=== PATIENT | male | born 1945 | race Caucasian/White ===

== ENCOUNTER 2018-10-17 18:50 | Inpatient (IN) | payer OTHER ==
[~2018-10-17] VITALS: Ht 175.3 cm; Wt 97.9 kg
[2018-10-17 18:53] VITALS: BP 100/64
[2018-10-17] MEDS ORDERED: PROPRANOLOL 1010 MG PO (19:05)
[2018-10-17] MEDS ORDERED: LIPITOR10 MG PO (19:06)
[2018-10-17 19:16] LABS: ABSOLUTE NEUTROPHILS 3.5 thou/uL (1.4-8.2); BASOPHILS 0.2 % (0.0-2.0); HEMATOCRIT 43.7 % (42.0-52.0); HEMOGLOBIN 14.9 gm/dL (14.0-18.0); LYMPHOCYTES 46.5 % (24.0-44.0); MCH 31.7 pg (26.0-34.0); MCHC 34.2 g/dL (28.0-37.0); MCV 92.6 fL (80.0-100.0); MONOCYTES 9.3 % (1.0-8.0); PLATELET COUNT 315 thou/uL (150-400); RBC 4.71 mil/uL (4.50-6.00); RDW 13.6 % (10.5-14.5); WBC 8.4 thou/uL (4.0-11.0)
[2018-10-17 19:20] LABS: CALCIUM 9.1 mg/dL (8.5-10.1); CREATININE 1.1 mg/dL (0.7-1.3); POTASSIUM 3.7 mmol/L (3.5-5.1)
[2018-10-17 19:26] LABS: CHOLESTEROL 154 mg/dL (<200); HDL CHOLESTEROL 31 mg/dL (>40); LDL CHOLESTEROL 104 mg/dL (<100); TRIGLYCERIDE 99 mg/dL (<150); VLDL 20 mg/dL (<40)
[2018-10-17 19:28] LABS: SERUM ASSESSMENT Clear
[2018-10-17 19:29] LABS: TROPONIN-I 0.11 ng/mL (<0.06)
[2018-10-17 19:37] VITALS: BP 151/58
[2018-10-17 21:30] VITALS: BP 163/93
[2018-10-17 21:34] VITALS: BP 129/90
[2018-10-17 23:15] VITALS: BP 156/105
[2018-10-18 01:08] LABS: HEMATOCRIT 43.9 % (42.0-52.0); MCH 31.7 pg (26.0-34.0); MCHC 34.1 g/dL (28.0-37.0); MCV 92.8 fL (80.0-100.0); RBC 4.73 mil/uL (4.50-6.00); RDW 13.7 % (10.5-14.5); WBC 9.6 thou/uL (4.0-11.0)
[2018-10-18 01:26] LABS: ANION GAP 11 mmol/L (7-16); BUN 13 mg/dL (7-18); CALCIUM 8.9 mg/dL (8.5-10.1); CHLORIDE 105 mmol/L (98-107); CO2 24 mmol/L (21-32); CREATININE 0.8 mg/dL (0.7-1.3); GLUCOSE 121 mg/dL (74-106); POTASSIUM 4.2 mmol/L (3.5-5.1); SODIUM 140 mmol/L (136-145)
[2018-10-18 01:32] LABS: TROPONIN-I > 40.00 ng/mL (<0.06)
[2018-10-18 04:53] VITALS: BP 101/65
--- NOTE | 2018-10-18 05:37 | NUR ---
PT WAS AN ADMIT FROM ER WHO WENT STRAIGHT TO POWDER NIPPER FOR A STEMI. A STENT WAS PLACED THROUGH THR RIGHT GROIN. PT ARRIVED ON THE FLOOR AT 2100 WITH NO SIGN OF DISRTRESS NOTED. RIGHT GROIN WAS CLEAN INTACT AND RICHARDS. NO SIGN OF DISTRESS NOTED IN PT. DR LIZ PERFORMED PROCEDURE, ADMISSION ASSESSMENT AND DEUCATION COMPLETED, APPROPRIATE VITALS DOCUMENTED. AT 2315 PT' BLOOD PRESSURE BECAME ELEVATED (156/106), RIGHT GROING SIGHT ASSESSED AND IT WAS NOTICED AT BLEEDING HAD OCCURED, BRIGHT RED BLOOD HAS SATURATED THE DRESSNG. ANOTHER RN WAS NOTIFIED, PRESSURE WAS APPLIED TO GROIN SIGHT FOR TWENTY MINUTES. PT HAD STATED THAT HE HAD SNEEZED PRIOR TO BLEEDING. PRESSURE CONTINUED TO BE APPLIED, LOPRESSOR ORDERED BY PHYSICIAN WAS ADMINISTERED TO PT. BLOOD PRESSURE TRENDED DOWN. PT IS STABLE. PT DENIES ANY PAIN AT RIGHT GROING SITE, DRESSING REINFORCED. PULSES PRESENT, CP REFILL < 3 SECS, VITAL SIGNS STABLE, HEART RATE STABLE. NO SIGN OF FURTHER DISTRESS NOTED AT THIS TIME.
[2018-10-18 07:16] VITALS: BP 113/68
--- NOTE | 2018-10-18 10:28 | 2DMMODE ---
[facility] [employer] [email or web address] [address] 2 D/M-MODE ECHOCARDIOGRAM Name: SHAHANA FLOYD Room #: 202-P [facility] IN ..#: [id number] Admission: 10/17/18 Attend Phys: Valente Regalado, Discharge: Date of : 49 Date of Service: 10/18/18 1027 Report #: [id number] THIS REPORT FOR: //name// APPROVED REPORT Study performed: 10/18/2018 08:50:18 EXAM: Comprehensive 2D, Doppler, and color-flow Echocardiogram Patient Location: Bedside Room #: 202 Status: routine BSA: 2.13 HR: 66 bpm BP: 113/68 mmHg Other Information Study Quality: Fair Indications COPD CAD Chest Pain Hypertension/HDD STEMI 2D Dimensions IVC: 24.00 mm Volumes Left Atrial Volume (Systole) Single Plane 4CH: 39.13 mL Single Plane 2CH: 39.03 mL LA ESV Index: 21.00 mL/m2 Aortic Valve AoV Peak Miki.: 1.36 m/s AO Peak Gr.: 7.36 mmHg LVOT Max P.38 mmHg LVOT Max V: 0.92 m/s Pulmonary Valve PV Peak Miki.: 1.20 m/s PV Peak Gr.: 5.74 mmHg Tricuspid Valve TR Peak Miki.: 2.24 m/s TR Peak Gr.: 20.01 mmHg PA Pressure: 30.00 mmHg [facility] [address] [place] [address] 2 D/M-MODE ECHOCARDIOGRAM Name: SHAHANA FLOYD Room #: 202-P ADM IN M.R.#: [id number] Admission: 10/17/18 Attend Phys: Valente Regalado, Discharge: Date of : 49 Date of Service: 10/18/18 1027 Report #: [id number] Left Ventricle The left ventricle is normal size. There is hypokinesis in the inferior wall. There is hypokinesis in the posterior wall. There is normal left ventricular wall thickness. Left ventricular systolic function is borderline. LVEF is 50%. This study is not technically sufficient to allow evaluation of the LV diastolic function. Right Ventricle The right ventricle is normal size. The right ventricular systolic function is normal. Atria The left atrium size is normal. Right atrium is at the upper limits of normal. Aortic Valve The aortic valve is normal in structure. The Aortic valve is sclerotic. Trace to mild aortic regurgitation. There is no aortic valvular stenosis. Mitral Valve The mitral valve is normal in structure. Trace mitral regurgitation. No evidence of mitral valve stenosis. Tricuspid Valve The tricuspid valve is normal in structure. There is trace tricuspid regurgitation. Estimated PAP 30 mmHg. There is mild pulmonary hypertension. Pulmonic Valve The pulmonary valve is normal in structure. There is no pulmonic valvular regurgitation. Great Vessels The aortic root is normal in size. IVC is dilated and collapses <50% with inspiration. Pericardium There is no pericardial effusion. <Conclusion> The left ventricle is normal size. LVEF is 50%. There is hypokinesis in the inferior wall. There is hypokinesis in the posterior wall. [facility] [address] [place] [address] 2 D/M-MODE ECHOCARDIOGRAM Name: SHAHANA FLOYD Sabina Room #: 202-P [facility] IN M.R.#: [id number] Admission: 10/17/18 Attend Phys: Valente Regalado, Discharge: Date of : 49 Date of Service: 10/18/18 1027 Report #: [id number] The aortic valve is normal in structure. The Aortic valve is sclerotic. Trace to mild aortic regurgitation. The mitral valve is normal in structure. Trace mitral regurgitation. The tricuspid valve is normal in structure. There is trace tricuspid regurgitation. Estimated PAP 30 mmHg. There is mild pulmonary hypertension. There is no pericardial effusion. <ELECTRONICALLY SIGNED> By: Luis Gordillo MD 10/18/187 26 26 Luis Gordillo MD /INF
[2018-10-18 11:31] VITALS: BP 113/74
[2018-10-18 15:06] VITALS: BP 113/65
--- NOTE | 2018-10-18 16:55 | NUR ---
ASSESSMENT CHARTED - MEDS PER DEC - NO CO'S OF PAIN OR NAUSEA. SANJANA DIET AND FLUIDS. UP AD VI IN ROOM. IN TO VISIT TODAY - SEEN BY CARDIAC REHAB THIS AFTERNOON. ECHO COMPLETED ORDERED. NO CO'S AT THE PRESENT TIME.
[2018-10-18 20:33] VITALS: BP 103/52
[2018-10-19 04:15] LABS: HEMATOCRIT 40.3 % (42.0-52.0); HEMOGLOBIN 13.9 gm/dL (14.0-18.0); MCH 31.6 pg (26.0-34.0); MCHC 34.4 g/dL (28.0-37.0); MCV 91.8 fL (80.0-100.0); RBC 4.39 mil/uL (4.50-6.00); RDW 13.9 % (10.5-14.5); WBC 8.9 thou/uL (4.0-11.0)
[2018-10-19 04:19] LABS: CALCIUM 8.4 mg/dL (8.5-10.1); CREATININE 0.9 mg/dL (0.7-1.3); POTASSIUM 3.3 mmol/L (3.5-5.1)
--- NOTE | 2018-10-19 04:23 | NUR ---
PT POST CATH. GROIN SITE C/D/I. NO C/O PAIN. DENIES RESP. DISTRESS AND CHEST PAIN. SLEPT MOST OF HE NIGHT. SR OF MOTOR POLARIZER WITH A 2 EPISODES OF VTACH, ASYMPTOMATIC. PT TO DC THIS AM. WILL CONTINUE TO MONITOR.
[2018-10-19 04:30] VITALS: BP 105/69
[2018-10-19 08:00] VITALS: BP 109/63
[2018-10-19] MEDS ORDERED: METOPROLOL SUCC25 M1 PO ×2 (08:00→08:05)
[2018-10-19] MEDS ORDERED: ATORVASTATIN CA40 MG PO (08:00)
[2018-10-19] MEDS ORDERED: ASPIRIN325 PO (08:00)
[2018-10-19] MEDS ORDERED: EFFIENT10 MG PO (08:00)
--- NOTE | 2018-10-19 08:42 | CATHLAB ---
[facility] [address] [place] [address] INVASIVE PROCEDURE REPORT Name: SHAHANA FLOYD Sabina Room #: 202-P [facility] IN ..#: [id number] Admission: 10/17/18 Attend Phys: Valente Regalado, Discharge: Date of : 49 Date of Service: 10/19/18 0842 Report #: [id number] THIS REPORT FOR: //name// APPROVED REPORT Study performed: 10/17/2018 19:31:30 Procedure Narrative The Right Groin^ was infiltrated with 1% Lidocaine subcutaneous anesthesia. A PINNACLE 6FR Sheath #[id number] sheath was inserted into the RFA^. Coronary angiography was performed using coronary diagnostic catheters. The right coronary system was accessed and visualized with a jr4 catheter. The left coronary system was accessed and visualized with a jl4 catheter. An aortogram of the abdominal aorta was performed. The patient tolerated the procedure well and there were no complications associated with the procedure. Intraoperative Conscious Sedation Sedation start time: 1951 Case end Time: 2051 Fentanyl 50 mcg Versed 1 mg Fluoro Time: 14.30 minutes Dose: DAP 46295.02 cGycm2 2140 mGy Contrast Type and Amount: Visipaque 210 ml Hemodynamics The aortic pressure is 149/92 mmHg with a mean of 117 mmHg. PCI Technique Lesion Percutaneous coronary intervention was performed on the mid right coronary artery. A BRITE TIP 6FR X 23CM Sheath #[id number] Guide Catheter was used to engage the ostium. A Luge Wire (J) .014 X 182CM #[id number] Interventional Guidewire was used to cross the lesion. BALLOON DILATION A Balloon catheter Sprinter OTW 2.75 x 15 #[id number] was inserted and inflated up to 10.00atm for 10seconds. Additional Inflation: 14.00atm for 18seconds. STENT DEPLOYMENT A stent RESOLUTE ELIZABETH OTW 3.5 X 26 #[id number] was inserted and inflated up to 18.00atm for 32seconds. Additional Inflation: 20.00atm for 22seconds. [facility] [address] [place] [address] INVASIVE PROCEDURE REPORT Name: FLOYDSHAHANA OSULLIVAN Sabina Room #: 202-P [facility] IN M.R.#: [id number] Admission: 10/17/18 Attend Phys: Valente Regalado, Discharge: Date of : 49 Date of Service: 10/19/18 0842 Report #: [id number] PCI Technique Lesion 2 [place]ISTA 6FR JR 4 #[id number] Guide Catheter was used to engage the ostium. Balloon Dilation A Balloon catheter Sprinter OTW 2.5 x 12 #[id number] was inserted and inflated up to 14atm for 30seconds. Additional Inflation: 16atm for 39seconds. Conclusion #1 assessment emergent PTCA stent of an acute infarct vessel a large dominant mid RCA occlusion a splint of a 3.5 x 26 resolute [place]th stent to 3.6 in size 0% residual VICKI grade 3 flow #2 successful PTCA of the ostial PDA distal to the stent placement in the dominant right which had a high-grade lesion to less than 30% with balloon angioplasty. #3 left main some mild ostial narrowing of 20-30% giving rise to LAD and circumflex #4 LAD is moderately calcified the proximal segment has an 80% focal lesion inside of a longer area of moderate disease well preserved distal to thirds of this vessel. Point sees possible intervention later date) #5 circumflex OM is small nondominant has an eccentric 60-70% proximal lesion but minimal distribution. #6 supravalvular aortogram due to severe tortuosity of the entire aorta had trivial aortic insufficiency and mild aortic root dilatation. Recommendations and plan. Patient he would have medically stable pain-free. Transfer to CCU to follow stent protocol. Dual antiplatelet therapy at least one year. Will obtain aortoiliac to evaluate the abdominal aorta due to severe tortuosity. I will be at the outpatient visit. And will set up for LAD stent at that setting. No strong indication to proceed with LAD intervention at this time. <ELECTRONICALLY SIGNED> By: Valente Regalado MD, FACC 10/19/18841 1 1 Valente Regalado MD, FACC /INF
[2018-10-19 09:09] VITALS: BP 109/63
--- NOTE | 2018-10-19 13:02 | NUR ---
assessment as charted - meds as per dec - toprol dose increased and given as ordered. pt up ad sharlene in room. faye diet and fluids with no co's of nausea - no co's of pain. pt discharged this am - in struction re home meds/ care and follow up given to patient and spouse - stated understanding of instruction given. pt left unit via wheel chair - home via pvt vehicle a accompanied by - no co's at time of d/c.
--- NOTE | 2018-10-19 15:05 | EKG ---
[address] [address] ELECTROCARDIOGRAM REPORT Name: SHAHANA FLOYD Sabina Room #: 202-P [facility] IN M.R.#: [id number] Admission: 10/17/18 Attend Phys: Valente Regalado MD, Discharge: 10/19/18 Date of : 49 Report #: [id number] THIS REPORT FOR: //name// [facility] ED Test Date: 2018-10-17 Test Time: 18:52:55 Pat Name: SHAHANA FLOYD Department: Room: 202 Gender: M Surgical Lead: MARIA R : 1945 Requested By: Beatriz Beal Order Number: [id number] MD: Jasen Corral Measurements Intervals [place] Rate: 52 P: 0 [place]: 208 QRS: 53 QRSD: 108 T: 101 QT: 429 QTc: 399 Interpretive Statements Wandering atrial pacemaker Inferoposterior infarct, acute (LCx) ST depression V1-V3, suggest recording posterior leads No previous ECG available for comparison Electronically Signed On 10-19-2018 15:05:01 SPORTS MARKETING SPECIALIST by Jasen Corral [email or web address] <ELECTRONICALLY SIGNED> By: Jasen Corral MD 10/19/18 1505 51 51 Jasen Corral MD /EPI
--- NOTE | 2018-10-19 15:07 | EKG ---
[address] [address] ELECTROCARDIOGRAM REPORT Name: EVERETTSHAHANA Muhammad Room #: 202-[facility] IN M.R.#: [id number] Admission: 10/17/18 Attend Phys: Valente Regalado MD, Discharge: 10/19/18 Date of : 49 Report #: [id number] THIS REPORT FOR: //name// [facility] Test Date: 2018-10-17 Test Time: 22:03:51 Pat Name: SHAHANA FLOYD Department: Room: 202 Gender: M Medication Nurse: Karen MORELOS : 1945 Requested By: Valente Regalado Order Number: [id number] MD: Jasen Corral Measurements Intervals [place] Rate: 85 P: -68 [place]: 272 QRS: -11 QRSD: 110 T: 97 QT: 380 QTc: 452 Interpretive Statements Sinus or ectopic atrial rhythm Prolonged [place] interval Inferior infarct, acute (RCA), resolving No previous ECG available for comparison Electronically Signed On 10-19-2018 15:06:58 BUSINESS OFFICE MANAGER by Jasen Corral [email or web address] <ELECTRONICALLY SIGNED> By: Jasen Corral MD 10/19/18 1506 02 02 Jasen Corral MD /EPI
--- NOTE | 2018-10-19 15:09 | EKG ---
[address] [address] ELECTROCARDIOGRAM REPORT Name: FLOYD,SHAHANA Muhammad Room #: 202-[facility] IN M.R.#: [id number] Admission: 10/17/18 Attend Phys: Valente Regalado MD, Discharge: 10/19/18 Date of : 49 Report #: [id number] THIS REPORT FOR: //name// [facility] Test Date: 2018-10-18 Test Time: 06:49:17 Pat Name: SHAHANA FLOYD Department: Room: 202 P Gender: M Evidence Technician: GR : 1945 Requested By: Valente Regalado Order Number: [id number] MD: Jasen Corral Measurements Intervals [place] Rate: 70 P: -82 [place]: 211 QRS: -34 QRSD: 127 T: -52 QT: 435 QTc: 470 Interpretive Statements Sinus or ectopic atrial rhythm Atrial premature complex Nonspecific intraventricular conduction delay Inferior infarct, age indeterminate No previous ECG available for comparison Electronically Signed On 10-19-2018 15:08:53 CORROSION CONTROL TECHNICIAN by Jasen Corral [email or web address] <ELECTRONICALLY SIGNED> By: Jasen Corral MD 10/19/18 1508 0649 0649 Jasen Corral MD /EPI
--- NOTE | 2018-10-19 15:22 | EKG ---
[address] [address] ELECTROCARDIOGRAM REPORT Name: FLOYD,SHAHANA Muhammad Room #: 202-[facility] IN M.R.#: [id number] Admission: 10/17/18 Attend Phys: Valente Regalado MD, Discharge: 10/19/18 Date of : 49 Report #: [id number] THIS REPORT FOR: //name// [facility] Test Date: 2018-10-19 Test Time: 08:10:54 Pat Name: SHAHANA FLOYD Department: Room: 202 P Gender: M Plastics Seasoner Operator: RICKY : 1945 Requested By: Rhonda Gasca Order Number: [id number] MD: Jasen Corral Measurements Intervals [place] Rate: 68 P: -32 [place]: 246 QRS: -36 QRSD: 108 T: -75 QT: 439 QTc: 467 Interpretive Statements Sinus rhythm Atrial premature complex Prolonged [place] interval Lateral leads are also involved No previous ECG available for comparison Electronically Signed On 10-19-2018 15:21:52 CENTER MAKER HAND by Jasen Corral [email or web address] <ELECTRONICALLY SIGNED> By: Jasen Corral MD 10/19/18 1521 9 9 Jasen Corral MD /BARTOLOME
--- NOTE | 2018-10-24 13:42 | H ---
[facility] [place] [address] HISTORY AND PHYSICAL Name: SHAHANA LFOYD Sabina Room #: 202-P [facility] IN M.R.#: [id number] Admission: 10/17/18 Attend Phys: Valente Regalado MD, Discharge: 10/19/18 Date of : 49 Report #: [id number] THIS REPORT FOR: //name// CC: Dr. Suman Regalado NO PCP DATE OF SERVICE: 10/17/2018 HISTORY OF PRESENT ILLNESS: The patient is a 73-year-old male who presented to the Emergency room, brought in by his approximately 5:30-5:45 p.m. toby sitting on the table after seeing his computer, after dinner had acute onset of sudden jaw pain became extremely diaphoretic, short of breath, and felt like he was going to pass out. subsequently put him in the car, brought him here to [facility] Emergency Room. Inferior current of injury on his EKG. He has no prior cardiac history and takes propranolol for blood pressure and essential tremor 40 b.i.d. and atorvastatin 10. No history of prior. He is a long-term smoker. He has not seen any revenue manager in quite some time. Perhaps a decrease in exercise tolerance, but until tonjenny had never had that jaw pain. His laboratory work, he has been given heparin, aspirin and Lipitor. Still having some discomfort and ST elevation on the monitor. Troponin 0.11. Potassium 3.7, LDL 104. I would question the accuracy in this setting. Cholesterol 154 total. H and H 14 and 43, white count 8.4. Chest x-ray shows some mild basilar opacities. PAST MEDICAL HISTORY: Positive for hypertension, left leg fracture with a steel plate and a right arm injury. Hypertension and essential tremor. SOCIAL HISTORY: He is , long-term tobacco. He is retired. No significant alcohol. He has 1 son. REVIEW OF SYSTEMS: Essentially negative except for stated above, occasional nocturia and hesitancy. PHYSICAL EXAMINATION: VITAL SIGNS: Blood pressure 100/64, pulse was initially 48-50, now 60s. HEENT: Eyes reveal xanthelasmas. Pharynx is clear. NECK: Shows preserved upstrokes without JVD or bruits. LUNGS: Prolonged expiratory phase. CARDIOVASCULAR: Distant heart tones, S1, S2. ABDOMEN: Mildly obese, nontender. EXTREMITIES: Reveal trace nonpitting edema. NEUROLOGIC: Nonfocal. SKIN: Warm and dry without xanthoma or ulcers. There is a tattoo right upper extremity. I cannot palpate distal pulses in the DP or PT or they are faintly [address] [address] HISTORY AND PHYSICAL Name: SHAHANA FLOYD Sabina Room #: 202-P [facility] IN M.R.#: [id number] Admission: 10/17/18 Attend Phys: Valente Regalado MD, Discharge: 10/19/18 Date of : 49 Report #: [id number] palpable. NEUROLOGIC: Intact. ASSESSMENT: 1. Acute inferior wall myocardial infarction. 2. Hypertension. 3. Hypercholesterolemia. 4. Chronic obstructive pulmonary disease, continued tobacco use. RECOMMENDATIONS AND PLAN: We will proceed emergently to the catheterization lab to delineate the anatomy and intervention as indicated. Risks, benefits, alternatives were discussed with him and his . <ELECTRONICALLY SIGNED> By: Valente Regalado MD, FACC 10/24/18 1342 46 23 Valente Regalado MD, FACC /nt
== END 2018-10-19 11:38 | disposition home or self-care (01) | DRG 246 ==
LOC: ER 18:50 → TBACV 19:37 → 2N 19:37 → ENTRNSPT 10-19 11:13 → EDTRNSPTSTS 10-19 11:15 → 2N 10-19 11:38
PROVIDERS: Nurse Practitioner Adult Health; Student in an Organized Health Care Education/Training Program; ADMIT Internal Medicine Cardiovascular Disease
PROC: 02703ZZ Dilation of Coronary Artery, One Artery, Percutaneous Approach (ICD-10-PCS; principal; 2018-10-17)
PROC: 4A023N7 Measurement of Cardiac Sampling and Pressure, Left Heart, Percutaneous Approach (ICD-10-PCS; principal; 2018-10-17)
PROC: B310YZZ Fluoroscopy of Thoracic Aorta using Other Contrast (ICD-10-PCS; principal; 2018-10-17)
PROC: B211YZZ Fluoroscopy of Multiple Coronary Arteries using Other Contrast (ICD-10-PCS; principal; 2018-10-17)
PROC: 027034Z Dilation of Coronary Artery, One Artery with Drug-eluting Intraluminal Device, Percutaneous Approach (ICD-10-PCS; principal; 2018-10-17)
DX: I21.19 ST elevation (STEMI) myocardial infarction involving other coronary artery of inferior wall (principal); N17.0 Acute kidney failure with tubular necrosis; I10 Essential (primary) hypertension; E78.00 Pure hypercholesterolemia, unspecified; J44.9 Chronic obstructive pulmonary disease, unspecified; F17.210 Nicotine dependence, cigarettes, uncomplicated; I71.4 Abdominal aortic aneurysm, without rupture; E78.5 Hyperlipidemia, unspecified; Z87.81 Personal history of (healed) traumatic fracture; Z79.82 Long term (current) use of aspirin; Z79.899 Other long term (current) drug therapy
CPT/HCPCS: 10081

== ENCOUNTER → 2018-11-28 | Outpatient (CLI) | payer OTHER ==
[~2018-11-28] MED LIST: ASPIRIN325 PO; ATORVASTATIN CA40 MG PO; EFFIENT10 MG PO; LIPITOR10 MG PO; METOPROLOL SUCC25 M1 PO; PROPRANOLOL 1010 MG PO
== END ==
LOC: CAT 08:25
DX: I71.4 Abdominal aortic aneurysm, without rupture (principal); N28.1 Cyst of kidney, acquired; I25.10 Atherosclerotic heart disease of native coronary artery without angina pectoris; M47.816 Spondylosis without myelopathy or radiculopathy, lumbar region

== ENCOUNTER 2018-12-10 06:32 | Observation (INO) | payer OTHER ==
[~2018-12-10] VITALS: Ht 175.3 cm; Wt 102.1 kg
[2018-12-10 07:10] VITALS: BP 137/85
[2018-12-10] MEDS ORDERED: ASPIR 8181 MG PO (07:24)
[2018-12-10 07:26] LABS: HEMATOCRIT 43.4 % (42.0-52.0); HEMOGLOBIN 14.4 gm/dL (14.0-18.0); MCH 30.5 pg (26.0-34.0); MCHC 33.2 g/dL (28.0-37.0); MCV 91.8 fL (80.0-100.0); RBC 4.73 mil/uL (4.50-6.00); RDW 14.2 % (10.5-14.5)
[2018-12-10] MEDS ORDERED: ZETIA10 MG PO (07:27)
[2018-12-10 07:37] LABS: CALCIUM 9.3 mg/dL (8.5-10.1); CREATININE 0.9 mg/dL (0.7-1.3); POTASSIUM 3.8 mmol/L (3.5-5.1)
--- NOTE | 2018-12-10 07:40 | EKG ---
[place] [address] [facility] [place] [address] ELECTROCARDIOGRAM REPORT Name: JOSE [facility]LOYD [id number] ������������������ Admission: 12/10/18 ������������������ Attend Phys: Valente Regalado MD, Discharge: ������������������ Date of : 49 Report #: [id number] ����������������������������������������������������������������� [id number] THIS REPORT FOR: //name// [facility] Test Date: 2018-12-10 Test Time: 07:06:53 Pat Name: JOSE FLOYD Department: Room: Gender: M Oncology Physician Assistant: : 1945 Requested By: Valente Regalado Order Number: [id number] MD: Davie Carbajal Measurements Intervals [place] Rate: 61 P: -40 [place]: 234 QRS: -44 QRSD: 115 T: -74 QT: 445 QTc: 449 Interpretive Statements Sinus rhythm Prolonged [place] interval Inferior infarct, age indeterminate Lateral leads involved Compared to ECG 10/19/2018 08:10:54 Atrial premature complex(es) no longer present Electronically Signed On 12-10-2018 7:39:59 MARKETING DATABASE COORDINATOR by Davie Carbajal [email or web address] ��������������������������������������������� <ELECTRONICALLY SIGNED> ���������������������������������������� By: Davie Carbajal MD, [facility] ��������������������������������������������� 12/10/18 0739 0706 Davie Carbajal MD, [facility] /EPI
[2018-12-10 09:45] VITALS: BP 132/77
[2018-12-10 09:54] VITALS: BP 132/77
--- NOTE | 2018-12-10 11:50 | NUR ---
PT ARRIVED TO THE UNIT AT APPROX 0945 WITH BELONGINGS, ACCOMPANIED BY PODIATRIC FOOT AND ANKLE SPECIALIST STAFF. PT AOX4, NO C/O PAIN, PT CURRENTLY ON BEDREST POST CATH PROCEDURE, TOLERATING WELL. RT GROIN SITE CDI NO HEMATOMA UPON ARRIVAL. CONTINUES TO BE CDI, NO HEMATOMA. ORDERS ACKNOWLEDGED/IMPLEMENTED. PT DENIES CONCERNS AT THIS TIME. TELE PUT ON, SR ON MONITOR. WILL CONTINUE TO MONITOR AND FOLLOW POC.
[2018-12-10 12:00] VITALS: BP 139/85
[2018-12-10 16:00] VITALS: BP 143/75
--- NOTE | 2018-12-10 17:08 | NUR ---
PT CONITNUES TO BE ALERT AND ORIENTED, DENIES PAIN, DENIES CHEST PAIN. O2 SATS WNL ON ROOM AIR, POST CATH VSS, PT OFF BEDREST, TOLERATING WELL. RT GROIN SITE CONTINUES TO BE CDI, NO HEMATOMA. NO S/SX OF CARDIAC OR RESP DISTRESS NOTED. PT CALLS APPROPRIATELY WITH NEEDS AND BEFORE GETTING UP. DENIES CONCERNS AT THIS TIME. WILL CONTINUE TO MONITOR AND FOLLOW POC.
[2018-12-10 20:30] VITALS: BP 114/72
[2018-12-11 03:29] LABS: HEMATOCRIT 41.1 % (42.0-52.0); HEMOGLOBIN 14.1 gm/dL (14.0-18.0); MCH 30.9 pg (26.0-34.0); MCHC 34.3 g/dL (28.0-37.0); MCV 90.2 fL (80.0-100.0); RBC 4.56 mil/uL (4.50-6.00); RDW 13.8 % (10.5-14.5); WBC 7.4 thou/uL (4.0-11.0)
[2018-12-11 03:46] LABS: CALCIUM 8.9 mg/dL (8.5-10.1); CREATININE 0.9 mg/dL (0.7-1.3); POTASSIUM 3.7 mmol/L (3.5-5.1); TROPONIN-I 0.16 ng/mL (<0.06)
[2018-12-11 04:45] VITALS: BP 116/76
--- NOTE | 2018-12-11 06:08 | NUR ---
PATIENTS CARES WERE ASSUMED AT SHIFT CHANGE. PATIENT WAS ASSESSED AND MEDS WERE PASSED. HOURLY ROUNDING WAS DONE. PATIENT DID APPER TO HAVE LUIS MIGUEL ABLE TO SLEEP. PATIENT IS LOOKING FORWAD TO GOING HOME TODAY. THE BED IS IN A LOW AND LOC POSITION.
[2018-12-11 07:25] VITALS: BP 138/77
[2018-12-11] MEDS ORDERED: ASPIRIN325 PO (07:30)
[2018-12-11] MEDS ORDERED: METOPROLOL SUCC25 M1 PO (07:30)
[2018-12-11] MEDS ORDERED: COZAAR 25 MG TA25 M1 PO (08:20)
[2018-12-11 08:50] VITALS: BP 138/77
--- NOTE | 2018-12-11 09:15 | EKG ---
[place] [address] [facility] [place] [address] ELECTROCARDIOGRAM REPORT Name: JOSE FLOYD Room #: 203-[facility] M.R.#: [id number] ������������������ Admission: 12/10/18 ������������������ Attend Phys: Valente Regalado MD, Discharge: ������������������ Date of : [birth year] Report #: [id number] ����������������������������������������������������������������� [id number] THIS REPORT FOR: //name// [facility] Test Date: 2018-12-11 Test Time: 06:58:16 Pat Name: JOSE FLOYD Department: Room: 203 P Gender: M Boiler Tube Blower: GR : 1945 Requested By: Valente Regalado Order Number: [id number] MD: Davie Carbajal Measurements Intervals [place] Rate: 73 P: -37 [place]: 241 QRS: -41 QRSD: 108 T: -67 QT: 414 QTc: 457 Interpretive Statements Sinus rhythm Abnormal R-wave progression, late transition Inferior infarct, age indeterminate Lateral leads are also involved Compared to ECG 12/10/2018 07:06:53 No significant changes Electronically Signed On 12-11-2018 9:15:38 SENIOR PRINCIPAL PROCESS ENGINEER by Davie Carbajal [email or web address] ��������������������������������������������� <ELECTRONICALLY SIGNED> ���������������������������������������� By: Davie Carbajal MD, [facility] ��������������������������������������������� 12/11/18 0915 0658 0658 Davie Carbajal MD, [facility] /EPI
[2018-12-11 09:49] VITALS: BP 138/77
--- NOTE | 2018-12-12 12:51 | CATHLAB ---
[facility] [place] [employer] [place] [address] INVASIVE PROCEDURE REPORT Name: JOSE FLOYD Room #: 203-P [facility] IN ..#: [id number] ������������� Admission: 12/10/18 ������������� Attend Phys: Valente Regalado, Discharge: ��� 12/11/18 ������������� ��� Date of : 49 Date of Service: 12/12/18 1251 �� Report #: [id number] �������� ��������������������������������������������[id number] THIS REPORT FOR: //name// APPROVED REPORT Study performed: 12/10/2018 07:17:24 Patient Details Patient Status: Out-Patient Room #: The patient is a 73 year-old male Event Personnel Valente Regalado Cabinet Builder, Leno Peterson RN, Jaja Magallanes RTR, Wilman Simmons David Monitor Procedures Performed Left Heart Cath w/or w/o Coronaries [id number] [facility] Aortogram Abdominal Peripheral Angio [id number] [facility] [address] w/wo Plasty Single LAD [id number] Indication Chest pain Procedure Narrative The Right Groin^ was infiltrated with 1% Lidocaine subcutaneous anesthesia. A PINNACLE 6FR Sheath #[id number] sheath was inserted into the RFA^. Coronary angiography was performed using coronary diagnostic catheters. The right coronary system was accessed and visualized with a JR4 catheter. The left coronary system was accessed and visualized with a JL4 catheter. The left ventricle was accessed and visualized with a PIGTAIL catheter. An aortogram of the abdominal aorta was performed. Closure device was deployed with a 6 Fr MYNXGRIP 6/7F #[id number]. The patient tolerated the procedure well and there were no complications associated with the procedure. There was no hematoma. Intraoperative Conscious Sedation Sedation start time: 8.18 Case end Time: 9.12 Fentanyl 50 mcg Versed 1.5 mg Fluoro Time: 8.42 minutes Dose: DAP 9947 cGycm2 1271 mGy Contrast Type and Amount: Omnipaque 165 ml [facility] [place] [employer] [place] [address] INVASIVE PROCEDURE REPORT Name: JOSE FLOYD GUSTAVO Room #: 203-P [facility] IN .R.#: [id number] ������������� Admission: 12/10/18 ������������� Attend Phys: Valente Regalado, Discharge: ��� 12/11/18 ������������� ��� Date of : 49 Date of Service: 12/12/18 1251 �� Report #: [id number] �������� ��������������������������������������������[id number] Hemodynamics The aortic pressure is 147/69 mmHg with a mean of 94 mmHg. The left ventricular pressure is 147/9 mmHg with a mean of mmHg. The left ventricular end diastolic pressure is 25 mmHg. PCI Technique Lesion Percutaneous coronary intervention was performed on the mid left anterior descending artery segment. A LAUNCHER 6FR EBU 3.5 #[id number] Guide Catheter was used to engage the ostium. A Luge Wire .014 x 182CM #[id number] Interventional Guidewire was used to cross the lesion. BALLOON DILATION A Balloon catheter Sprinter OTW 2.5 x 15 #[id number] was inserted and inflated up to 16.00atm for 30seconds. STENT DEPLOYMENT A drug-eluting stent XIENCE LACHO RX 3.0 X 18 #[id number] was inserted and inflated up to 16.00atm for 26seconds. 3.0X8 LACHO- 16/25-18/14 POST STENT DEPLOYMENT BALLOON DILATION A Balloon catheter Euphora NC RX 3.25 x 20 #[id number] was inserted and inflated up to 20.00atm for 21seconds. Additional Inflation: 22.00atm for 25seconds. PCI Technique Lesion 2 A LAUNCHER 6FR EBU 3.5 #[id number] Guide Catheter was used to engage the ostium. A Luge Wire .014 x 182CM #[id number] Interventional Guidewire was used to cross the lesion. Stent Deployment A drug-eluting stent XIENCE LACHO RX 3.0 X 8 #[id number] was inserted and inflated up to 16atm for 25seconds. Additional Inflation: 18atm for 14seconds. Post Stent Deployment Balloon Dilation A Balloon catheter Euphora NC RX 3.25 x 20 #[id number] was inserted and inflated up to 20atm for 21seconds. Additional Inflation: 22atm for 25seconds. Conclusion #1 successful PTCA stent of the proximal LAD with placement of 2 stents a 30 by 18 and a 30 by 8 Lacho drug-eluting stents. Postdilated with noncompliant balloon to 3.3 mm. 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 PDA and ROB mildly diseased #5 borderline left ventricular dilatation with a moderate area of hypokinesis in the inferior wall ejection fraction 40-45% #6 abdominal aortogram reveals a small aortic aneurysm with moderate aortic ectasia and calcification extending into the iliac system. We'll further evaluate noninvasively. Recommendations and plan: Continue aggressive risk factor modification dual antiplatelet therapy indefinitely. Transfer to CCU in stable condition. Follow post stent protocol. ��������������������������������������������� <ELECTRONICALLY SIGNED> ���������������������������������������� By: Valente Regalado MD, FACC ��������������������������������������������� 12/12/18 1251 1251 125 Valente Regalado MD, FACC /INF
== END 2018-12-11 09:55 | disposition home or self-care (01) ==
LOC: CATH 06:32 → 2N 09:58 → CATH 10:57 → ENTRNSPT 12-11 09:48 → EDTRNSPTSTS 12-11 09:52 → 2N 12-11 09:55
PROVIDERS: ADMIT Internal Medicine Cardiovascular Disease
DX: I25.10 Atherosclerotic heart disease of native coronary artery without angina pectoris (principal); I10 Essential (primary) hypertension; E78.5 Hyperlipidemia, unspecified; I71.4 Abdominal aortic aneurysm, without rupture; I25.2 Old myocardial infarction; F17.210 Nicotine dependence, cigarettes, uncomplicated; Z79.82 Long term (current) use of aspirin; Z79.899 Other long term (current) drug therapy

== ENCOUNTER → 2020-11-27 | Outpatient (CLI) | payer OTHER ==
[~2020-11-27] MED LIST changes: +ASPIR 8181 MG PO; +COZAAR 25 MG TA25 M1 PO; +ZETIA10 MG PO
== END ==
LOC: SJCVC 11:39
PROVIDERS: ATTEND Internal Medicine Cardiovascular Disease
DX: R94.31 Abnormal electrocardiogram [ECG] [EKG] (principal); R07.9 Chest pain, unspecified; I10 Essential (primary) hypertension; E78.00 Pure hypercholesterolemia, unspecified; I71.4 Abdominal aortic aneurysm, without rupture; I72.3 Aneurysm of iliac artery; R06.02 Shortness of breath; J44.9 Chronic obstructive pulmonary disease, unspecified; I25.2 Old myocardial infarction; Z87.891 Personal history of nicotine dependence; Z79.899 Other long term (current) drug therapy

== ENCOUNTER → 2020-12-04 | Outpatient (CLI) | payer OTHER | LOC: SJCVCIMAG 08:05 | PROVIDERS: ATTEND Internal Medicine Cardiovascular Disease | DX: I71.4 Abdominal aortic aneurysm, without rupture (principal); I72.3 Aneurysm of iliac artery; I44.0 Atrioventricular block, first degree; I73.9 Peripheral vascular disease, unspecified; I25.10 Atherosclerotic heart disease of native coronary artery without angina pectoris; Z95.5 Presence of coronary angioplasty implant and graft; Z79.82 Long term (current) use of aspirin; Z79.899 Other long term (current) drug therapy; Z87.891 Personal history of nicotine dependence ==